=== PATIENT | male | born 1970 | race Caucasian/White ===

== ENCOUNTER 2020-04-19 13:28 | Emergency (ER) | payer BC, OTHER ==
[2020-04-19] MEDS ORDERED: KETOROLAC TROMETHAMINE 60 MG/2 ML VIAL IM ONE (13:35)
[2020-04-19] MEDS ORDERED: LIDOCAINE 5% TOPICAL PATCH TP ONE (13:35)
[2020-04-19] MEDS ORDERED: METHOCARBAMOL 500 MG TABLET PO ONE (13:35)
[2020-04-19 13:40] VITALS: BP 119/77; PULSE 63; TEMP 98; BMI 31.1
[2020-04-19] MEDS ORDERED: METHOCARBAMOL 500 MG TABLET ONE (13:42)
[2020-04-19] MEDS ORDERED: KETOROLAC TROMETHAMINE 60 MG/2 ML VIAL ONE (13:42)
[2020-04-19] MEDS ORDERED: LIDOCAINE 5% TOPICAL PATCH ONE (13:42)
--- NOTE | 2020-04-19 14:32 | PDOC ---
History of Present Illness - General Chief Complaint: Pain Stated Complaint: INJURED LOWER BACK AT WORK TODAY Time Seen by Provider: 04/19/20 13:35 - History of Present Illness Initial Comments: 04/19/20 14:26 50yo male with no pmhx of pshx presents with R lbp that occurred today while at work. Pt states at 5am he was working for the [employer] when he was cleaning the rags off a machine when the rag became caught and he pulled hard "tweaking" his back. Pt states pain only in his R low back. Pt states pain with forward flexion and worse when sitting. Pt ambulated into the ER. Denies radiation of pain, no paresthesias, no weakness, no loss of bowel or bladder control, no saddle paresthesias. No red flags. Pt denies prior hx of lbp. Pt denies all other somatic complaints. Past History - Medical History Allergies/Adverse Reactions: Allergies Allergy/AdvReac Type Severity Reaction Status Date / Time No Known Allergies Allergy Unverified 04/19/20 13:33 Home Medications: Ambulatory Orders Ibuprofen [Motrin -] 600 mg PO TID PRN #15 tablet 04/19/20 Methocarbamol [Robaxin -] 500 mg PO BID PRN #10 tablet 04/19/20 Methylprednisolone [Medrol Dose Meek] 4 mg PO ASDIR #21 tablet 04/19/20 COPD: No Other medical history: DENIES - Psycho-Social/Smoking History Smoking History: Never smoked Information on smoking cessation initiated: No - Substance Abuse Hx (Audit-C & DAST Scrn) How often the patient has a drink containing alcohol: 2-4 times / month Number of drinks the patient has on a typical day: 1 or 2 How often the patient has six or more drinks on one occasion: Never Score: In Men: 4 or > Positive; In Women: 3 or > Positive: 2 Screen Result (Pos requires Nsg. Audit-10AR): Negative In the last yr the pt used illegal drug/Rx for NonMed reason: No Score: Yes response is considered Positive: 0 Screen Result (Positive result requires Nsg. DAST-10): Negative Review of Systems - Review of Systems Able to Perform ROS?: Yes Is the patient limited Luxem[place]ish proficient: No Constitutional: No: Chills, Fever HEENTM: No: Nose Congestion, Throat Swelling Respiratory: No: Cough, Shortness of Breath Cardiac (ROS): No: Chest Pain ABD/GI: No: Diarrhea, Nausea, Vomiting, Abdominal cramping : No: Incontinence Musculoskeletal: Yes: Back Pain, Muscle Pain. No: Muscle Weakness, Neck Pain Integumentary: No: Bruising, Erythema, Rash Neurological: No: Headache, Numbness, Paresthesia, Tingling, Tremors, Weakness, Unsteady Gait, Ataxia, Dizziness All Other Systems: Reviewed and Negative *Physical Exam - Vital Signs Last Vital Signs Temp Pulse Resp BP Pulse Ox 98 F 63 18 119/77 97 04/19/20 13:33 04/19/20 13:33 04/19/20 13:33 04/19/20 13:33 04/19/20 13:33 - Physical Exam General Appearance: Yes: Nourished, Appropriately Dressed, Mild Distress HEENT: positive: EOMI, Normal Voice Neck: positive: Supple. negative: Tender lateral, Tender midline Respiratory/Chest: positive: Lungs Clear, Normal Breath Sounds. negative: Respiratory Distress Cardiovascular: positive: Regular Rhythm, Regular Rate, S1, S2. negative: Edema Gastrointestinal/Abdominal: positive: Soft. negative: Guarding, Rebound, Tenderness Musculoskeletal: positive: Decreased Range of Motion, Muscle Spasm (R low back at L4-5 paraspinal ttp and mild soft tissue swelling, muscle spasm presents, no midline ttp), Other (able to ambulate with a steady gait, ambulates on toes and heels, limited ROM in forward flexion, from in extension, FROM in rotation). negative: CVA Tenderness Extremity: positive: Normal Capillary Refill, Normal Inspection, Normal Range of Motion. negative: Swelling, Calf Tenderness Integumentary: positive: Normal Color, Dry, Warm. 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 negative: Sensory Deficit ED Treatment Course - RADIOLOGY Radiology Studies Ordered: Category Date Time Status SPINE-LUMBAR SACRAL [RAD] Stat Radiology 04/19/20 13:35 Ordered - Medications Given in the ED: ED Medications Discontinued Medications Generic Name Dose Route Start Last Admin Trade Name Freq PRN Reason Stop Dose Admin Ketorolac Tromethamine 60 mg 04/19/20 13:35 04/19/20 13:51 Toradol Injection - IM 04/19/20 13:36 60 mg ONCE ONE Administration Lidocaine 1 patch 04/19/20 13:35 04/19/20 13:51 Lidoderm Patch - TP 04/19/20 13:36 1 patch ONCE ONE Administration Methocarbamol 1,000 mg 04/19/20 13:35 04/19/20 13:51 Robaxin - PO 04/19/20 13:36 1,000 mg ONCE ONE Administration Medical Decision Making - Medical Decision Making 04/19/20 14:36 a/p: 50yo male with R lbp -suspect muscle spasm in the R lb -ttp over the R parapinal musculature -will send for xray given limited ROM -will medicate with toradol, robaxin, lidoderm -will monitor and reassess 04/19/20 14:43 xray does not show acute fx discussed limitations of fx pt now able to lay down and sit more comfortably 04/19/20 15:00 pt states still with pain with forward flexion, but was able to stand up and get up from the stretcher in NAD requests work note will give nsaids/medrol dose pack, and robaxin for home discussed follow up with a back specialist/renewals specialist Discharge - Discharge Information Problems reviewed: Yes Clinical Impression/Diagnosis: Low back pain, Low back strain Condition: Stable Disposition: HOME - Admission No - Additional Discharge Information Prescriptions: Methylprednisolone [Medrol Dose Meek] 4 mg PO ASDIR #21 tablet Ibuprofen [Motrin -] 600 mg PO TID PRN #15 tablet PRN Reason: Pain Methocarbamol [Robaxin -] 500 mg PO BID PRN #10 tablet PRN Reason: Muscle Spasms - Follow up/Referral Referrals: Jericho Read MD [Staff Physician] - Hardeep Hill DO [Staff Physician] - Palmer Moses MD, FAANS [Staff Physician] - Cas Hennessy MD [Staff Physician] - - Patient Discharge Instructions Patient Printed Discharge Instructions: DI for Back Strain or Sprain, DI for Low Back Pain Additional Instructions: Please take all medications as prescribed. Please follow up with your PMD this week and also with the back specialist- orthopedics or neurosx. Please return to the ER with any further concerns or complaints. You can try to soak in an epson salt bath to help with the pain. You can also apply over the counter topical biofreeze patches to help with the pain. If you develop numbness or weakness in your legs, paresthesias, loss of control of the bowel/bladder, or any other concerning symptoms please return to the ER immediately. - Post Discharge Activity Work/Back to School Note: Back to Work
[2020-04-19] MEDS ORDERED: LIDOCAINE PATCH REMOVAL MC SCH (22:00)
== END 2020-04-19 15:18 | disposition home or self-care (01) ==
LOC: FER 13:28
PROC: 3E0233Z Introduction of Anti-inflammatory into Muscle, Percutaneous Approach (ICD-10-PCS; principal; 2020-04-19)
DX: M54.5 Low back pain (principal); S39.012A Strain of muscle, fascia and tendon of lower back, initial encounter
CPT/HCPCS: 72100-TC-FY; 99284-25